=== PATIENT | female | born 1980 | race African-American/Black ===

== ENCOUNTER 2021-09-10 12:53 | Inpatient (IN) ==
[2021-09-10 14:44] LABS: Basophils # (auto) 0.07 K/uL (0-0.2); Basophils % (auto) 0.6 %; Eosinophils # (auto) 0.77 K/uL (0-0.50); Eosinophils % (auto) 6.4 %; Hematocrit (blood only) 25.5 % (34.1-44.9); Immature Granulocytes # (auto) 0.07 K/uL (0.00-0.02); Immature Granulocytes % (auto) 0.6 %; Lymphocytes # (auto) 2.59 K/uL (1.2-3.4); Lymphocytes % (auto) 21.7 %; Mean Corpuscular Hemoglobin 25.9 pg (25.0-34.0); Mean Corpuscular Hgb Conc 35.3 g/dL (32.0-36.0); Mean Corpuscular Volume 73.5 fL (80.0-100.0); Mean Platelet Volume 8.9 fL (9.4-12.3); Monocytes # (auto) 1.04 K/uL (0.24-0.82); Monocytes % (auto) 8.7 %; Neutrophils # (auto) 7.41 K/uL (1.4-6.5); Nucleated RBC # (auto) 0.09 K/uL (0-0); Nucleated RBC % (auto) 0.8 %; Platelet Count 722 K/uL (130-400); RDW Coefficient of Variation 17.4 % (11.5-14.5); RDW Standard Deviation 46.6 fL (36.4-46.3); Red Blood Count 3.47 M/uL (3.93-5.22); White Blood Count 11.95 K/ul (4.8-10.8)
[2021-09-10 15:04] LABS: INR 1.1 (0.9-1.1); Partial Thromboplastin Time 26.2 Seconds (21.0-31.0); Prothrombin Time 11.3 Seconds (9.0-12.0)
[2021-09-10 15:25] LABS: Albumin Globulin Ratio 0.8 (0.9-2); Albumin Level 3.9 gm/dl (3.4-5.0); Bilirubin,Total 0.7 mg/dl (0.2-1.0); Calcium 9.1 mg/dl (8.5-10.1); Creatinine Clr Calc Pharmacy 77.4 ml/min; Est GFR (Non-African American) 58.6 ml/min; Globulin 4.6 gm/dl (2.5-4.0); Magnesium 2.1 mg/dl (1.7-2.4); Potassium 4.2 mmol/L (3.5-5.1); Total Protein 8.5 gm/dl (6.0-8.3)
--- NOTE | 2021-09-10 15:49 | Emergency Department Note ---
Impression & Plan Bilateral pulmonary embolism, Anemia, Thrombocytopenia ED Provider Note NAME: AGUSTIN OROZCO AGE: 40 SEX: F : 1980 ARRIVES VIA: Walk-In INFORMANT: [Patient][, ] ED PROVIDER(S): [Santiago Monsivais MD] Chief Complaint: Shortness of breath, pleural effusion, rule out PE HPI: Patient [place] [facility] [place] due to concern for shortness of breath wanted to rule out PE/DVT. The patient states that she has had some shortness of breath as well as some left-sided calf discomfort. The patient states that shortness of breath is worse with exertion. The patient did have outpatient x-rays completed which showed constipation of the abdomen and the patient did have bilateral pleural effusions. Patient denies any recent prolonged car plane travel. The patient is currently been at the [facility] [place] [facility] for history of depression since the beginning of the month. Patient denies any alcohol or tobacco use. Patient was noted to have an increased heart rate with exertion into the 130s. Patient had been trialed with a breathing treatment which did occasionally improve her symptoms. The patient denies purulent productive cough but has occasionally clear expectoration. Patient denies any prior history of heart or lung disease. ROS: See HPI for pertinent positives and negatives. A total of 10 systems were reviewed and otherwise negative. Past medical history: See below Surgical history: See below Social history: See below Physical Exam: GENERAL: NAD, non-toxic. EYE EXAM: Normal conjunctiva. PERRL, no anisocoria and EOM's grossly intact w/o pain. NECK: Supple, no nuchal rigidity, no adenopathy, non-tender. No signs of meningismus. FROM of the neck with good chin to chest and neck extension. No stridor. LUNGS: Clear to auscultation. Normal chest wall mechanics. HEART: NSR, no MRG. ABDOMEN: Abdomen soft, non-tender, normo-active bowel sounds, no masses, no rebound or guarding. BACK: No CVA TTP. SKIN: No rashes and no bruising. UPPER EXTREMITIES: Upper extremities are grossly normal. LOWER EXTREMITIES: Grossly normal, no edema. Negative Homans' sign bilaterally. NEURO EXAM: A&O x3, cranial nerves II-XII grossly intact, normal speech, moves all 4 extremities. Differential diagnoses: Reactive airway disease, pneumonia, pneumothorax, COPD, CHF, infections, cardiac ischemia, pulmonary embolism, musculoskeletal, gastrointestinal, as well as other pathologies. Course: Patient was seen and evaluated the bedside. Full history physical exam was performed. EKG interpreted by me Sinus with first-degree AV block, rate of 81, prolonged ID, normal axis, no obvious ST elevations. Imaging Studies: See Below Cardiac monitoring: An order was placed for continuous cardiac monitoring. The monitor shows a rate of 82 with sinus rhythm. MDM: Patient presents due to concern for shortness of breath as well as rule out PE. Patient did have blood work completed along with a CT angiography of the chest. DVT ultrasound of the left lower extremity also ordered. Patient does have a white count of 11.9 with a hemoglobin of 9. Patient also has associated th rombocytosis of 722. Patient with mild hyponatremia at 135. The patient's troponin is not elevated. BNP is not elevated. Patient CT angiography does show concern for bilateral PEs. I did convey this to the patient as well as staff from [place] [facility] [place] Patient was ordered heparin bolus and drip. I did speak with the on-call hospitalist Dr. Bell and the patient was admitted to the medicine service. DVT ultrasound negative. Critical Care: I have personally spent 47 minutes of critical care time in direct management of this patient. This includes bedside care, interpretation of diagnostic studies, and testing, discussion with consultants, patient, and family members, and other require inpatient management activities. This 47 minutes is in excess of all separately billable procedures. Past Med/Surg History Medical History Depression Schizoaffective disorder Surgical History No pertinent past surgical history Social History Smoking Status: Current some day smoker Hx Alcohol Use: No Hx Substance Use: No Preferred Language: Divehi Feels Safe at Home: Yes Results & Data (ED) Vital Signs Vital Signs - 24 hr 09/10/21 12:59 09/10/21 15:30 09/10/21 18:00 Temperature 36.7 C Temperature Source Temporal Artery Scan Pulse Rate 94 H Pulse Rate [Right Finger] 74 81 Pulse Rhythm [Right Finger] Regular Regular Pulse Strength [Right Finger] Normal Normal Respiratory Rate 18 18 14 Respiratory Effort / Characteristics Non-Labored Non-Labored Respiratory Depth Normal Normal Respiratory Pattern Regular Regular Blood Pressure 107/75 Blood Pressure [Right Arm] 134/76 134/76 Blood Pressure Mean 85 Blood Pressure Mean [Right Arm] 95 95 Blood Pressure Position [Right Arm] Lying Lying Pulse Oximetry 94 94 94 Oxygen Delivery Method Room Air Room Air Room Air Sepsis Recent Fever Within 48 Hours No Sepsis New/Unexplained Change in Mental Status No Sepsis Action Taken by Nursing No Action Required Home Medications Current Medication List: was personally reviewed by me Laboratory Data Attestation: I reviewed the patient's lab results. Result diagrams: 09/10/21 14:26 09/10/21 14: Lab Results 09/10/21 09/10/21 09/10/21 Range/Units 14:26 14:26 14:26 WBC 11.95 H (4.8-10.8) K/ul RBC 3.47 L (3.93-5.22) M/uL Hgb 9.0 L (12.0-16.0) g/dl Hct 25.5 L (34.1-44.9) % MCV 73.5 L (80.0-100.0) fL MCH 25.9 (25.0-34.0) pg MCHC 35.3 (32.0-36.0) g/dL RDW Std Deviation 46.6 H (36.4-46.3) fL RDW Coeff of Eric 17.4 H (11.5-14.5) % Plt Count 722 H (130-400) K/uL MPV 8.9 L (9.4-12.3) fL Immature Gran % (Auto) 0.6 % Neut % (Auto) 62.0 % Lymph % (Auto) 21.7 % Love % (Auto) 8.7 % Eos % (Auto) 6.4 % Baso % (Auto) 0.6 % Reticulocyte % (Auto) (0.5-2.0) % Neut # (Auto) 7.41 H (1.4-6.5) K/uL Lymph # (Auto) 2.59 (1.2-3.4) K/uL Love # (Auto) 1.04 H (0.24-0.82) K/uL Eos # (Auto) 0.77 H (0-0.50) K/uL Baso # (Auto) 0.07 (0-0.2) K/uL Reticulocyte # (0.02-0.10) 10^6/uL Immature Gran # (Auto) 0.07 H (0.00-0.02) K/uL Absolute Nucleated RBC 0.09 H (0-0) K/uL Nucleated RBC % (auto) 0.8 % PT 11.3 (9.0-12.0) Seconds INR 1.1 (0.9-1.1) APTT 26.2 (21.0-31.0) Seconds PTT Ratio 1.0 Sodium 135 L (136-145) mmol/L Potassium 4.2 (3.5-5.1) mmol/L Chloride 100 (98-107) mmol/L Carbon Dioxide 28 (21-32) mmol/L Anion Gap 7 (3-11) BUN 8 (6-23) mg/dl Creatinine 1.15 (0.6-1.2) mg/dl Est Cr Clr Drug Dosing 77.4 ml/min Est GFR ( Amer) 68.0 ml/min Est GFR (Non-Af Amer) 58.6 ml/min BUN/Creatinine Ratio 7.0 L (10-20) Glucose 123 H (70-99(Fasting)) mg/dl Calcium 9.1 (8.5-10.1) mg/dl Magnesium 2.1 (1.7-2.4) mg/dl Total Bilirubin 0.7 (0.2-1.0) mg/dl AST 13 (13-39) U/L ALT 18 (7-52) U/L Alkaline Phosphatase 86 (34-104) U/L Troponin I High Sens (0-14) pg/ml B-Natriuretic Peptide (0-100) pg/ml Total Protein 8.5 H (6.0-8.3) gm/dl Albumin 3.9 (3.4-5.0) gm/dl Globulin 4.6 H (2.5-4.0) gm/dl Albumin/Globulin Ratio 0.8 L (0.9-2) Vitamin B12 (180-914) pg/ml Folate (>5.38) ng/ml SARS-CoV-2, RNA, NAAT (NEGATIVE) 09/10/21 09/10/21 09/10/21 Range/Units 14:36 14:36 16:33 WBC (4.8-10.8) K/ul RBC (3.93-5.22) M/uL Hgb (12.0-16.0) g/dl Hct (34.1-44.9) % MCV (80.0-100.0) fL MCH (25.0-34.0) pg MCHC (32.0-36.0) g/dL RDW Std Deviation (36.4-46.3) fL RDW Coeff of Eric (11.5-14.5) % Plt Count (130-400) K/uL MPV (9.4-12.3) fL Immature Gran % (Auto) % Neut % (Auto) % Lymph % (Auto) % Love % (Auto) % Eos % (Auto) % Baso % (Auto) % Reticulocyte % (Auto) 4.6 H (0.5-2.0) % Neut # (Auto) (1.4-6.5) K/uL Lymph # (Auto) (1.2-3.4) K/uL Love # (Auto) (0.24-0.82) K/uL Eos # (Auto) (0-0.50) K/uL Baso # (Auto) (0-0.2) K/uL Reticulocyte # 0.16 H (0.02-0.10) 10^6/uL Immature Gran # (Auto) (0.00-0.02) K/uL Absolute Nucleated RBC (0-0) K/uL Nucleated RBC % (auto) % PT (9.0-12.0) Seconds INR (0.9-1.1) APTT (21.0-31.0) Seconds PTT Ratio Sodium (136-145) mmol/L Potassium (3.5-5.1) mmol/L Chloride (98-107) mmol/L Carbon Dioxide (21-32) mmol/L Anion Gap (3-11) BUN (6-23) mg/dl Creatinine (0.6-1.2) mg/dl Est Cr Clr Drug Dosing ml/min Est GFR ( Amer) ml/min Est GFR (Non-Af Amer) ml/min BUN/Creatinine Ratio (10-20) Glucose (70-99(Fasting)) mg/dl Calcium (8.5-10.1) mg/dl Magnesium (1.7-2.4) mg/dl Total Bilirubin (0.2-1.0) mg/dl AST (13-39) U/L ALT (7-52) U/L Alkaline Phosphatase (34-104) U/L Troponin I High Sens 2.6 (0-14) pg/ml B-Natriuretic Peptide (0-100) pg/ml Total Protein (6.0-8.3) gm/dl Albumin (3.4-5.0) gm/dl Globulin (2.5-4.0) gm/dl Albumin/Globulin Ratio (0.9-2) Vitamin B12 130 L (180-914) pg/ml Folate 4.32 L (>5.38) ng/ml SARS-CoV-2, RNA, NAAT (NEGATIVE) 09/10/21 09/10/21 Range/Units 16:33 18:08 WBC (4.8-10.8) K/ul RBC (3.93-5.22) M/uL Hgb (12.0-16.0) g/dl Hct (34.1-44.9) % MCV (80.0-100.0) fL MCH (25.0-34.0) pg MCHC (32.0-36.0) g/dL RDW Std Deviation (36.4-46.3) fL RDW Coeff of Eric (11.5-14.5) % Plt Count (130-400) K/uL MPV (9.4-12.3) fL Immature Gran % (Auto) % Neut % (Auto) % Lymph % (Auto) % Love % (Auto) % Eos % (Auto) % Baso % (Auto) % Reticulocyte % (Auto) (0.5-2.0) % Neut # (Auto) (1.4-6.5) K/uL Lymph # (Auto) (1.2-3.4) K/uL Love # (Auto) (0.24-0.82) K/uL Eos # (Auto) (0-0.50) K/uL Baso # (Auto) (0-0.2) K/uL Reticulocyte # (0.02-0.10) 10^6/uL Immature Gran # (Auto) (0.00-0.02) K/uL Absolute Nucleated RBC (0-0) K/uL Nucleated RBC % (auto) % PT (9.0-12.0) Seconds INR (0.9-1.1) APTT (21.0-31.0) Seconds PTT Ratio Sodium (136-145) mmol/L Potassium (3.5-5.1) mmol/L Chloride (98-107) mmol/L Carbon Dioxide (21-32) mmol/L Anion Gap (3-11) BUN (6-23) mg/dl Creatinine (0.6-1.2) mg/dl Est Cr Clr Drug Dosing ml/min Est GFR ( Amer) ml/min Est GFR (Non-Af Amer) ml/min BUN/Creatinine Ratio (10-20) Glucose (70-99(Fasting)) mg/dl Calcium (8.5-10.1) mg/dl Magnesium (1.7-2.4) mg/dl Total Bilirubin (0.2-1.0) mg/dl AST (13-39) U/L ALT (7-52) U/L Alkaline Phosphatase (34-104) U/L Troponin I High Sens (0-14) pg/ml B-Natriuretic Peptide 13 (0-100) pg/ml Total Protein (6.0-8.3) gm/dl Albumin (3.4-5.0) gm/dl Globulin (2.5-4.0) gm/dl Albumin/Globulin Ratio (0.9-2) Vitamin B12 (180-914) pg/ml Folate (>5.38) ng/ml SARS-CoV-2, RNA, NAAT NEGATIVE (NEGATIVE) Administered Medications Heparin Sodium/Dextrose (Heparin Sodium/Dextrose) 25,000 units in 500 mls @ 28 mls/hr IV .[id number] [facility]; Protocol Stop: 10/10/21 17:29 Last Admin: 09/10/21 18:13 Dose: 1,400 units/hr, 28 mls/hr Documented By: AP Co-signed By: OL Discontinued Medications Albuterol (Albut/Ipratrop 3mg/0.5mg Neb 3 Ml Vial) 3 ml NEB NOW STA; Protocol Stop: 09/10/21 16:25 Last Admin: 09/10/21 16:53 Dose: 3 ml Documented By: ILEANA Heparin Sodium (Porcine) (Heparin Sod (Porcine) 1000 Unit/Ml) 1 units IV NOW ONE Stop: 09/10/21 17:27 Last Admin: 09/10/21 18:13 Dose: 6,000 units Documented By: DANIELA Co-signed By: ILEANA Ioversol (Optiray 320 125ml) 120 ml IV ONCE ONE Stop: 09/10/21 16:45 Last Admin: 09/10/21 16:45 Dose: 120 ml Documented By: [facility] Imaging Data Radiologist's Impression: Chest X-Ray 09/10/21 13:08 XR chest 1V portable CLINICAL HISTORY: SOB TECHNIQUE: Single frontal radiograph of the chest was obtained. Comparison: None available at the time of this dictation. FINDINGS: No lines and tubes are seen. The cardiomediastinal silhouette is normal. The lungs are clear. Small bilateral pleural effusions are seen. IMPRESSION: Small bilateral pleural effusions. ACT 112: Negative or not required by law. Electronically signed by: Bebeto Reed M.D. 09/10/2021 3:54 PM Chest CTA 09/10/21 16:11 CT ANGIOGRAM OF THE CHEST CLINICAL HISTORY: Dyspnea. Bilateral flank pain. COMPARISON STUDY: Chest x-ray dated 09/10/2021. TECHNIQUE: Following the IV administration of 120 cc of Optiray 320, CT angiogram of the chest was performed from the upper abdomen to the thoracic inlet utilizing the pulmonary embolus protocol. Images are reviewed in the axial, sagittal, and coronal planes. 3-D MIPS images are created and assessed. IV contrast was administered without complication. A dose lowering technique was utilized adhering to the principles of ALARA. CT DOSE: 359.98 mGy.cm FINDINGS: Thyroid: Imaged portions of the thyroid gland are normal in size and attenuation. Thoracic aorta: The thoracic aorta is normal in caliber and demonstrates standard 3-vessel arch anatomy. No dissection is seen. Pulmonary vasculature: The pulmonary trunk is normal in caliber. There are segmental and subsegmental pulmonary emboli within a branch of the right upper lobe pulmonary artery. This is best seen on axial image #187. Segmental and subsegmental left upper lobe pulmonary emboli are seen on image #153. The central pulmonary vessels are clear. Evaluation of the lower lobe vessels is significantly degraded by motion artifact. Heart: The heart is top normal in size and without pericardial effusion. Lungs and pleural spaces: There are small pleural effusions with dense bibasilar consolidation. The upper lobe lung parenchyma is clear. The trachea and central airways are patent. A 3 mm low suspicion pleural-based nodule is seen in the right middle lobe along the minor fissure on image #134. Mediastinum: There is a mildly enlarged prevascular node which measures up to 10 mm in short axis. Grazyna: There are mildly enlarged hilar nodes which measure up to 10 mm short axis. Axillae: There is no axillary lymphadenopathy. Upper abdomen: The spleen is diminutive. Partially visualized upper abdominal viscera is otherwise within normal limits. Skeletal structures: No lytic or blastic bony lesions are seen. IMPRESSION: 1. Segmental and subsegmental pulmonary emboli are seen within the upper lobe p ulmonary arteries bilaterally. 2. Small pleural effusions with dependent consolidation. This likely represents atelectasis. Correlate clinically for evidence of a superimposed infectious/inflammatory pneumonitis. 3. Atrophic spleen. 4. Mildly enlarged mediastinal and hilar nodes are likely reactive. 5. Additional findings as above. ACT 112: Negative or not required by law. Electronically signed by: Jai Wills M.D. 09/10/2021 4:55 PM Venous Doppler Study 09/10/21 16:25 US venous doppler [facility] CLINICAL HISTORY: calf pain TECHNIQUE: Left lower extremity real-time compression venous ultrasound with Color Doppler imaging. Utilizing real-time ultrasonic imaging multiple real time high-resolution ultrasonic images with compression and noncompression maneuvers of the deep venous system in addition to color doppler imaging were performed from the common femoral vein through the proximal calf veins. COMPARISON: None available at the time of this dictation. FINDINGS: Currently there is normal compressibility of the deep venous system from the common femoral vein through the proximal calf veins. No superficial venous thrombosis is identified. Impression: No evidence of deep venous thrombus. ACT 112: Negative or not required by law. Electronically signed by: Bebeto Reed M.D. 09/10/2021 5:50 PM Discharge Plan Visit Data Chief Complaint: Referred by Doctor Stated Complaint: PAIN IN SIDE, RESPIRATORY ISSUES, WEAKNESS ED Provider: Santiago Monsivais Discharge Problem: Bilateral pulmonary embolism, Anemia, Thrombocytopenia Patient Disposition: Admitted As Inpatient Forms Stand Alone Forms: [facility] Referrals Referrals: PCP,NO [Primary Care Provider] -
--- NOTE | 2021-09-10 15:56 | XRay Report ---
XR chest 1V portable CLINICAL HISTORY: SOB TECHNIQUE: Single frontal radiograph of the chest was obtained. Comparison: None available at the time of this dictation. FINDINGS: No lines and tubes are seen. The cardiomediastinal silhouette is normal. The lungs are clear. Small b ilateral pleural effusions are seen. IMPRESSION: Small bilateral pleural effusions. ACT 112: Negative or not required by law. Electronically signed by: Bebeto Reed M.D. 09/10/2021 3:54 PM
[2021-09-10] MEDS ORDERED: ALBUT/IPRATROP 3MG/0.5MG NEB 3 ML VIAL NEB STA (16:24)
[2021-09-10] MEDS ORDERED: OPTIRAY 320 125ml IV ONE (16:44)
--- NOTE | 2021-09-10 16:56 | CT Scan Report ---
CT ANGIOGRAM OF THE CHEST CLINICAL HISTORY: Dyspnea. Bilateral flank pain. COMPARISON STUDY: Chest x-ray dated 09/10/2021. TECHNIQUE: Following the IV administration of 120 cc of Optiray 320, CT angiogram of the chest was pe rformed from the upper abdomen to the thoracic inlet utilizing the pulmonary embolus protocol. Images are reviewed in the axial, sagittal, and coronal planes. 3-D MIPS images are created and assessed. I V contrast was administered without complication. A dose lowering technique was utilized adhering to the principles of ALARA. CT DOSE: 359.98 mGy.cm FINDINGS: Thyroid: Imaged portions of the thyroid gland are normal in size and attenuation. Thoracic aorta: The thoracic aorta is normal in caliber and demonstrates standard 3-vessel arch anato my. No dissection is seen. Pulmonary vasculature: The pulmonary trunk is normal in caliber. There are segmental and subsegmental pulmonary emboli within a branch of the right upper lobe pulmonary artery. This is best seen on axia l image #187. Segmental and subsegmental left upper lobe pulmonary emboli are seen on image #153. The central pulmonary vessels are clear. Evaluation of the lower lobe vessels is significantly degraded by motion artifact. Heart: The heart is top normal in size and without pericardial effusion. Lungs and pleural spaces: There are small pleural effusions with dense bibasilar consolidation. The u pper lobe lung parenchyma is clear. The trachea and central airways are patent. A 3 mm low suspicion pleural-based nodule is seen in the right middle lobe along the minor fissure on image #134. Mediastinum: There is a mildly enlarged prevascular node which measures up to 10 mm in short axis. Grazyna: There are mildly enlarged hilar nodes which measure up to 10 mm short axis. Axillae: There is no axillary lymphadenopathy. Upper abdomen: The spleen is diminutive. Partially visualized upper abdominal viscera is otherwise wi thin normal limits. Skeletal structures: No lytic or blastic bony lesions are seen. IMPRESSION: 1. Segmental and subsegmental pulmonary emboli are seen within the upper lobe pulmonary arteries bila terally. 2. Small pleural effusions with dependent consolidation. This likely represents atelectasis. Correlat e clinically for evidence of a superimposed infectious/inflammatory pneumonitis. 3. Atrophic spleen. 4. Mildly enlarged mediastinal and hilar nodes are likely reactive. 5. Additional findings as above. ACT 112: Negative or not required by law. Electronically signed by: Jai Wills M.D. 09/10/2021 4:55 PM
[2021-09-10] MEDS ORDERED: Heparin IV Adult Wt-Based Standard WITH Bolus Protocol IV STA (17:09)
[2021-09-10] MEDS ORDERED: HEPARIN SOD (PORCINE) 1000 UNIT/ML IV ONE (17:26)
--- NOTE | 2021-09-10 17:37 | History & Physical Report ---
Date of Service September 10, 2021 Assessment & Plan (1) Bilateral pulmonary embolism: Plan: Suspect somewhat her cause of shortness of breath and chest pain although she may also have underlying asthma Start IV heparin as unknown if anemia if acute or chronic but no overt bleeding noted by patient Likely can switch to oral anticoagulant tomorrow ?second episode - patient is unclear about this. May need outside PCP notes to see if she needs lifelong anticoagulation (2) Anemia: Plan: Possibly diagnosed with sickle cell anemia/trait - patient is unclear about this. Possible this alone could be causing her chest and leg pains. Will send sickle cell screen with AM labs Ferritin, iron sats, B12, folate and reticulocyte count FOB (3) Thrombophilia: Plan: ?related to sickle cell disease. Consider hematology follow up. (4) PTSD (post-traumatic stress disorder): Plan: Continue her usual psychiatric medications with haloperidol, risperidone, gabapentin, trazodone, benztropine, diphenhydramine and venlafaxine. (5) Panic disorder: (6) Schizoaffective disorder: Plan VTE Prophylaxis - heparin IV Diet - safe tray Disposition - observation status to med/tele Admission and Anticipated Discharge Date Admission Date: September 11, 2021 History of Present Illness Chief Complaint: Shortness of breath Primary Care Provider: NO PCP Billie Mast is a 40 year old female who presents from the [facility] due to chest discomfort, shortness of breath, tachycardia and hypoxia. She reports her symptoms have been ongoing for two weeks starting with left sided chest pain but now on both sides. Worse on inspiration. Associated shortness of breath. Urine has also been smelling and is darker but she also reports not drinking well - she was recently treated for a UTI with nitrof urantoin at the [facility]. She also now reports left leg pain for the last 2 days. Recent CXR yesterday was concerning for some consolidation and she was started on Levquin today. However given persistent worsening symptoms she was sent ot the ER for further evaluation. In the ER CT chest angiogram was concerning for bilateral pulmonary emboli therefore she was referred to medicine for admission and ongoing management of this. She is unsure about her medical history but thinks she may have had a blood clot sometime in 2007 for which she was treated with a blood thinner. When mentioning sickle cell disease/trait she thinks she has this although again is unsure. Allergies Allergy/AdvReac Type Severity Reaction Status Date / Time shellfish derived Allergy Unknown Verified 09/10/21 20:56 lactose AdvReac intolerance Verified 09/10/21 20:56 Home Medications Medication Instructions Recorded Confirmed Type albuterol sulfate 2.5 mg inhalation Q4H 09/10/21 09/10/21 History albuterol sulfate 90 mcg/actuation 2 inh inhalation Q6 PRN asthma 09/10/21 09/10/21 History aerosol inhaler benztropine 1 mg tablet 1 mg PO HS 09/10/21 09/10/21 History diphenhydramine HCl 25 mg capsule 25 mg PO BID 09/10/21 09/10/21 History (Benadryl) gabapentin 300 mg capsule 300 mg PO TID 09/10/21 09/10/21 History haloperidol 5 mg tablet 5 mg PO QAM 09/10/21 09/10/21 History ibuprofen 600 mg tablet 600 mg PO TID PRN Pain 09/10/21 09/10/21 History levofloxacin 250 mg tablet 750 mg PO DAILY 09/10/21 09/10/21 History lidocaine 4 % topical patch 3 patch topical PC PRN Pain 09/10/21 09/10/21 History (Salonpas (lidocaine)) loratadine 10 mg tablet (Claritin) 10 mg PO DAILY PRN allergies 09/10/21 09/10/21 History nitrofurantoin macrocrystal 100 mg 100 mg PO BID 09/10/21 09/10/21 History capsule risperidone 3 mg tablet 3 mg PO BID 09/10/21 09/10/21 History trazodone 100 mg tablet 200 mg PO HS 09/10/21 09/10/21 History venlafaxine 75 mg capsule,extended 75 mg PO BID 09/10/21 09/10/21 History release 24 hr (Effexor XR) Past Med/Surg History Medical History (Updated 09/10/21 @ 21:28 by Syed Bell MD) Anemia Depression Panic disorder PTSD (post-traumatic stress disorder) Schizoaffective disorder Surgical History No pertinent past surgical history Social History Smoking Status: Former smoker Hx Alcohol Use: Yes Hx Substance Use: No Preferred Language: Luxembourgish Communication Ability: Effective Cylinder Checker Required: No Beliefs That Will Affect Care: None Current Living Situation: Alone Current Living Situation Comment: lives in apartment alone Feels Safe at Home: No Is there a partner from a previous relationship who is making you feel unsafe now?: No Any Concerns about Your Family Situation: Yes Would You Like to Speak to Someone About Your Situation: Yes (referral to behavioral health) Safety Concerns: Afraid for Self and Afraid for Child/Children Review of Systems Review of Systems: All systems reviewed & are unremarkable except as noted in HPI & below Physical Exam Constitutional: WD/WN, vitals as above Eyes: + anicteric sclerae; normal pupil size ENMT: external ear and nose normal, oropharynx normal Neck: trachea midline, no thyromegaly Respiratory: normal respiratory effort, lungs clear to auscultation Cardiovascular: RRR, no murmur, no edema Gastrointestinal (Abdomen): normal bowel sounds, soft, nontender, no hepatosplenomegaly Musculoskeletal: no cyanosis or clubbing, extremities motor strength 5/5 Skin: no rashes, warm and dry Neurologic: moves all extremities and awake; not confused Psychiatric: A+Ox3, euthymic affect Results & Data Results & Data ([facility]) Vital Signs (Past 12 Hours) Vital Signs Temp Pulse Pulse Resp BP BP Pulse Ox 09/10/21 15:30 74 18 134/76 94 09/10/21 12:59 36.7 C 94 H 18 107/75 94 O2 Del Method 09/10/21 15:30 Room Air 09/10/21 12:59 Room Air Laboratory Results Abnormal lab results 09/10/21 09/10/21 Range/Units 14:26 14:26 WBC 11.95 H (4.8-10.8) K/ul RBC 3.47 L (3.93-5.22) M/uL Hgb 9.0 L (12.0-16.0) g/dl Hct 25.5 L (34.1-44.9) % MCV 73.5 L (80.0-100.0) fL RDW Std Deviation 46.6 H (36.4-46.3) fL RDW Coeff of Eric 17.4 H (11.5-14.5) % Plt Count 722 H (130-400) K/uL MPV 8.9 L (9.4-12.3) fL Neut # (Auto) 7.41 H (1.4-6.5) K/uL [place] # (Auto) 1.04 H (0.24-0.82) K/uL Eos # (Auto) 0.77 H (0-0.50) K/uL Immature Gran # (Auto) 0.07 H (0.00-0.02) K/uL Absolute Nucleated RBC 0.09 H (0-0) K/uL Sodium 135 L (136-145) mmol/L BUN/Creatinine Ratio 7.0 L (10-20) Glucose 123 H (70-99(Fasting)) mg/dl Total Protein 8.5 H (6.0-8.3) gm/dl Globulin 4.6 H (2.5-4.0) gm/dl Albumin/Globulin Ratio 0.8 L (0.9-2) Diagnostic Findings XR chest 1V portable CLINICAL HISTORY: SOB TECHNIQUE: Single frontal radiograph of the chest was obtained. Comparison: None available at the time of this dictation. FINDINGS: No lines and tubes are seen. The cardiomediastinal silhouette is normal. The lungs are clear. Small bilateral pleural effusions are seen. IMPRESSION: Small bilateral pleural effusions. CT ANGIOGRAM OF THE CHEST CLINICAL HISTORY: Dyspnea. Bilateral flank pain. COMPARISON STUDY: Chest x-ray dated 09/10/2021. TECHNIQUE: Following the IV administration of 120 cc of Optiray 320, CT angiogram of the chest was performed from the upper abdomen to the thoracic inlet utilizing the pulmonary embolus protocol. Images are reviewed in the axial, sagittal, and coronal planes. 3-D MIPS images are created and assessed. IV contrast was administered without complication. A dose lowering technique was utilized adhering to the principles of ALARA. CT DOSE: 359.98 mGy.cm FINDINGS: Thyroid: Imaged portions of the thyroid gland are normal in size and attenuation. Thoracic aorta: The thoracic aorta is normal in caliber and demonstrates standard 3-vessel arch anatomy. No dissection is seen. Pulmonary vasculature: The pulmonary trunk is normal in caliber. There are segmental and subsegmental pulmonary emboli within a branch of the right upper lobe pulmonary artery. This is best seen on axial image #187. Segmental and subsegmental left upper lobe pulmonary emboli are seen on image #153. The central pulmonary vessels are clear. Evaluation of the lower lobe vessels is significantly degraded by motion artifact. Heart: The heart is top normal in size and without pericardial effusion. Lungs and pleural spaces: There are small pleural effusions with dense bibasilar consolidation. The upper lobe lung parenchyma is clear. The trachea and central airways are patent. A 3 mm low suspicion pleural-based nodule is seen in the right middle lobe along the minor fissure on image #134. Mediastinum: There is a mildly enlarged prevascular node which measures up to 10 mm in short axis. [place]: There are mildly enlarged hilar nodes which measure up to 10 mm short axis. Axillae: There is no axillary lymphadenopathy. Upper abdomen: The spleen is diminutive. Partially visualized upper abdominal viscera is otherwise within normal limits. Skeletal structures: No lytic or blastic bony lesions are seen. IMPRESSION: 1. Segmental and subsegmental pulmonary emboli are seen within the upper lobe pulmonary arteries bilaterally. 2. Small pleural effusions with dependent consolidation. This likely represents atelectasis. Correlate clinically for evidence of a superimposed infectious/inflammatory pneumonitis. 3. Atrophic spleen. 4. Mildly enlarged mediastinal and hilar nodes are likely reactive. 5. Additional findings as above. US venous doppler LE LT CLINICAL HISTORY: calf pain TECHNIQUE: Left lower extremity real-time compression venous ultrasound with Color Doppler imaging. Utilizing real-time ultrasonic imaging multiple real time high-resolution ultrasonic images with compression and noncompression maneuvers of the deep venous system in addition to color doppler imaging were performed from the common femoral vein through the proximal calf veins. COMPARISON: None available at the time of this dictation. FINDINGS: Currently there is normal compressibility of the deep venous system from the common femoral vein through the proximal calf veins. No superficial venous thrombosis is identified. Impression: No evidence of deep venous thrombus. Medications Administered ER Medications Given: Duoneb 3ml NEB Heparin IV standard bolus and drip ECG Rate (beats per minute): 81 Rhythm: normal sinus Findings: + other (non-specific T wave abnormality) Comparison ECG Date: no prior available Code Status & VTE Plan Code Status Full VTE Prophylaxis Plan VTE Prophylaxis will be ordered: Yes PG Care Time/CCT Total # of Minutes Spent Total Time Spent with Patient: Total time spent is greater than 50% in coordination of care (as documented) at patient's floor/unit and/or counseling patient: Coding Level of Care Code INT OBSERVATION CARE 70M LVL 3 Diagnoses Bilateral pulmonary embolism I26.99 Anemia D64.9 Thrombophilia D68.59 PTSD (post-traumatic stress disorder) F43.10 Panic disorder F41.0 Schizoaffective disorder F25.9
--- NOTE | 2021-09-10 17:51 | Ultrasound Report ---
US venous doppler LE LT CLINICAL HISTORY: calf pain TECHNIQUE: Left lower extremity real-time compression venous ultrasound with Color Doppler imaging. U tilizing real-time ultrasonic imaging multiple real time high-resolution ultrasonic images with compr ession and noncompression maneuvers of the deep venous system in addition to color doppler imaging we re performed from the common femoral vein through the proximal calf veins. COMPARISON: None available at the time of this dictation. FINDINGS: Currently there is normal compressibility of the deep venous system from the common femoral vein thro ugh the proximal calf veins. No superficial venous thrombosis is identified. Impression: No evidence of deep venous thrombus. ACT 112: Negative or not required by law. Electronically signed by: Bebeto Reed M.D. 09/10/2021 5:50 PM
[2021-09-10] MEDS: HEPARIN SODIUM/DEXTROSE 25,000 UNITS/500 ML BAG IV SCH (18:13)
[2021-09-10 18:50] LABS: Reticulocyte % 4.6 % (0.5-2.0); Reticulocytes # 0.16 10^6/uL (0.02-0.10)
[2021-09-10 19:21] LABS: Folate (Folic Acid) 4.32 ng/ml (>5.38)
[2021-09-10 19:38] LABS: Ferritin 850.1 ng/ml (8-388)
[2021-09-10] MEDS ORDERED: LORATADINE 10 MG TAB PO PRN (21:13)
[2021-09-10] MEDS: risperiDONE 3 MG TABLET PO SCH (22:17)
[2021-09-10] MEDS: traZODone HCL 100 MG TAB PO SCH (22:17)
[2021-09-10] MEDS: diphenhydrAMINE Capsule 25 MG CAP PO SCH (22:17)
[2021-09-10] MEDS: GABAPENTIN 300 MG CAP PO SCH (22:17)
[2021-09-10] MEDS: BENZTROPINE MESYLATE 1 MG TAB PO SCH (22:18)
[2021-09-11 01:19] LABS: Partial Thromboplastin Ratio 2.5
[2021-09-11 01:30] LABS: Partial Thromboplastin Time 68.9 Seconds (21.0-31.0)
--- NOTE | 2021-09-11 04:33 | Communication Note ---
Date of Service: September 11, 2021 See nursing and psych liaison notes regarding childline report filed by psych liason. Patient's nurse had reached out to me about patient's stated concern. I discussed with attending who then reached out to gallery manager who called Russell and who later reached out to cna caregiver and psych liaison.
[2021-09-11 07:56] LABS: Basophils # (auto) 0.07 K/uL (0-0.2); Basophils % (auto) 0.5 %; Eosinophils # (auto) 1.26 K/uL (0-0.50); Eosinophils % (auto) 9.4 %; Hematocrit (blood only) 23.9 % (34.1-44.9); Hemoglobin 8.5 g/dl (12.0-16.0); Immature Granulocytes # (auto) 0.13 K/uL (0.00-0.02); Lymphocytes # (auto) 3.69 K/uL (1.2-3.4); Lymphocytes % (auto) 27.6 %; Mean Corpuscular Hemoglobin 26.2 pg (25.0-34.0); Mean Corpuscular Hgb Conc 35.6 g/dL (32.0-36.0); Mean Corpuscular Volume 73.8 fL (80.0-100.0); Mean Platelet Volume 9.3 fL (9.4-12.3); Monocytes % (auto) 9.7 %; Neutrophils # (auto) 6.92 K/uL (1.4-6.5); Neutrophils % (auto) 51.8 %; Nucleated RBC # (auto) 0.09 K/uL (0-0); Nucleated RBC % (auto) 0.7 %; Platelet Count 750 K/uL (130-400); RDW Coefficient of Variation 17.4 % (11.5-14.5); RDW Standard Deviation 46.9 fL (36.4-46.3); Red Blood Count 3.24 M/uL (3.93-5.22); White Blood Count 13.37 K/ul (4.8-10.8)
[2021-09-11 08:02] LABS: Partial Thromboplastin Ratio 1.8
[2021-09-11 08:08] LABS: Partial Thromboplastin Time 49.8 Seconds (21.0-31.0)
[2021-09-11] MEDS: risperiDONE 3 MG TABLET PO SCH ×2 (08:21→20:13)
[2021-09-11] MEDS: diphenhydrAMINE Capsule 25 MG CAP PO SCH ×2 (08:21→20:13)
[2021-09-11 08:22] LABS: BUN Creatinine Ratio 8.8 (10-20); Creatinine Clr Calc Pharmacy 87.4 ml/min; Est GFR (African American) 78.6 ml/min; Est GFR (Non-African American) 67.8 ml/min; Potassium 4.5 mmol/L (3.5-5.1)
[2021-09-11] MEDS: haloperidoL 5 MG TAB PO SCH (08:22)
[2021-09-11] MEDS: GABAPENTIN 300 MG CAP PO SCH ×3 (08:22→20:13)
[2021-09-11] MEDS: VENLAFAXINE HCL XR 75 MG CAPXR PO SCH ×2 (08:22→13:52)
[2021-09-11] MEDS: ACETAMINOPHEN 325 MG TAB PO PRN ×2 (08:26→19:44)
[2021-09-11] MEDS ORDERED: SODIUM CHLORIDE 0.9% 500 ML IV SCH (09:00)
--- NOTE | 2021-09-11 09:16 | Electrocardiogram Report ---
Test Reason : Blood Pressure : / mmHG Vent. Rate : 081 BPM Atrial Rate : 081 BPM P-R Int : 214 ms QRS Dur : 088 ms QT Int : 374 ms P-R-T Axes : 034 023 023 degrees QTc Int : 434 ms Sinus rhythm with 1st degree A-V block Nonspecific T wave abnormality Abnormal ECG No previous ECGs available Confirmed by Domenico Romero ([id number]) on 09/11/2021 9:16:28 AM Referred By: Confirmed By:Domenico Romero
[2021-09-11] MEDS: SODIUM CHLORIDE 0.9% 1,000 ML IV SCH ×2 (10:05→22:33)
[2021-09-11 10:54] LABS: Iron 42 mcg/dl (35-150); Total Iron Binding Cap Calc 248 mcg/dl (250-450); Transferrin (FE) Percent Satur 17 % (15-50); Unsaturated Iron Binding Cap 206 mcg/dl (155-355)
[2021-09-11] MEDS: AZITHROMYCIN 250 MG TAB PO SCH (10:59)
[2021-09-11] MEDS: AMPICILLIN/SULBACTAM SOD 3,000 MG in 0.9 % SODIUM CHLORIDE 100 ML IV SCH ×3 (10:59→21:28)
[2021-09-11 11:25] LABS: Pregnancy Test, Urine Negative (Negative)
[2021-09-11 11:28] LABS: Appearance Urine Clear (Clear); Bacteria Urine Automated 1+ (Negative); Bilirubin Urine Negative (Negative); Blood Urine Negative (Negative); Color Urine Yellow; Epithelial Cell Urine Auto 20-30 /lpf (0-5); Glucose Urine UA Negative (Negative); Ketones Urine Negative (Negative); Leukocyte Esterase Urine Trace (Negative); Nitrite Urine Negative (Negative); Protein Urine Negative (Negative); RBC Urine Automated 0-4 /hpf (0-4); Specific Gravity Urine 1.022 (1.000-1.030); Urobilinogen Urine Negative (Negative); pH Urine 6.5 (4.5-7.5)
--- NOTE | 2021-09-11 15:58 | Hospitalist Progress Note ---
Date of Service September 11, 2021 Assessment & Plan (1) Bilateral pulmonary embolism: Plan: Reportedly past history in 2007 when she was on Coumadin (not confirmed) but did not tolerate and later describes what appears to be Lovenox; Given recurrence should be on lifelong anticoagulation; however, will need to consider antiphospholipid syndrome that Coumadin would be the drug of choice APL studies IV heparin for now; Echo; volume (2) Anemia: Plan: Impression microcytic anemia; appears picture of sickle thal; will obtain studies pending sickle screen; also, noted folic acid level and B12 levelrepl zoran (high-dose p.o. B12) (3) Thrombophilia: Plan: Uncertain etiology; does not appear iron deficient; given leukocytosis does raise the question of myelodysplasiahematology evaluation early Monday (4) PTSD (post-traumatic stress disorder): Plan: Continue her usual psychiatric medications with haloperidol, risperidone, gabapentin, trazodone, benztropine, diphenhydramine and venlafaxine. (5) Schizoaffective disorder: Plan: Continue meds as ordered; denies SI (6) Leucocytosis: Plan: Given question of consolidation benefit of doubt and treat as possible PNA pending more data Plan VTE Prophylaxis - heparin IV Diet - safe tray Admission and Anticipated Discharge Date Admission Date: September 10, 2021 Subjective Follow-up of presentation with shortness of breath-does feel dizzy Physical Exam Physical Exam: Constitutional and general: No acute distress, looks biologic age Head and face: No puffiness, atraumatic Eyes: No scleral icterus, extraocular movements normal Neck: Supple, no JVD Musculoskeletal: No acute joint swelling, no bony abnormalities Skin/dermatologic/integument: No rash, no purpura Hematologic and lymphatic: pallor +, no petechia Gastrointestinal/abdomen: Nondistended, soft, nonacute Neurologic: Cranial nerves intact, nonfocal Psychiatry: Awake, alert, pleasant, communicative Cardiovascular: Heart rhythm regular, no rub, no murmur, no gallop Respiratory: Chest movements equal, no use of accessory muscles, no adventitious sounds Extremities: No edema, no cyanosis Results & Data Results & Data ([facility]) Vital Signs (Past 12 Hours) Vital Signs Temp Pulse Pulse Resp BP Pulse Ox O2 Del Method 09/11/21 15:36 36.8 C 84 18 105/70 92 Room Air 09/11/21 14:44 79 09/11/21 10:50 36.3 C L 97 H 18 113/75 91 Room Air 09/11/21 08:39 79 09/11/21 07:56 36.9 C 64 18 91/58 L 94 Room Air 09/11/21 04:00 36.7 C 84 18 109/64 94 Room Air Laboratory Results Laboratory Results - last 24 hr 09/10/21 09/10/21 09/10/21 14:36 14:36 14:36 WBC RBC Hgb Hct MCV MCH MCHC RDW Std Deviation RDW Coeff of Eric Plt Count MPV Immature Gran % (Auto) Neut % (Auto) Lymph % (Auto) [place] % (Auto) Eos % (Auto) Baso % (Auto) Reticulocyte % (Auto) 4.6 H Neut # (Auto) Lymph # (Auto) [place] # (Auto) Eos # (Auto) Baso # (Auto) Reticulocyte # 0.16 H Immature Gran # (Auto) Absolute Nucleated RBC Nucleated RBC % (auto) Sickle Cell Screen APTT PTT Ratio Sodium Potassium Chloride Carbon Dioxide Anion Gap BUN Creatinine Est Cr Clr Drug Dosing Est GFR ( Amer) Est GFR (Non-Af Amer) BUN/Creatinine Ratio Glucose Calcium Iron 50 TIBC 267 Unsaturated IBC 217 Transferrin % Sat 19 Ferritin 850.1 H Troponin I High Sens B-Natriuretic Peptide Vitamin B12 130 L Folate 4.32 L Procalcitonin Urine Color Urine Appearance Urine pH Ur Specific [place] Urine Protein Urine Glucose (UA) Urine Ketones Urine Blood Urine Nitrite Urine Bilirubin Urine Urobilinogen Ur Leukocyte Esterase Urine WBC (Auto) Urine RBC (Auto) U Hyaline Cast (Auto) U Epithel Cells (Auto) Urine Bacteria (Auto) Urine Test Nasal Screen MRSA (PCR) Urine Legionella Ag SARS-CoV-2, RNA, NAAT 09/10/21 09/10/21 09/10/21 16:33 16:33 18:08 WBC RBC Hgb Hct MCV MCH MCHC RDW Std Deviation RDW Coeff of Eric Plt Count MPV Immature Gran % (Auto) Neut % (Auto) Lymph % (Auto) [place] % (Auto) Eos % (Auto) Baso % (Auto) Reticulocyte % (Auto) Neut # (Auto) Lymph # (Auto) [place] # (Auto) Eos # (Auto) Baso # (Auto) Reticulocyte # Immature Gran # (Auto) Absolute Nucleated RBC Nucleated RBC % (auto) Sickle Cell Screen APTT PTT Ratio Sodium Potassium Chloride Carbon Dioxide Anion Gap BUN Creatinine Est Cr Clr Drug Dosing Est GFR ( Amer) Est GFR (Non-Af Amer) BUN/Creatinine Ratio Glucose Calcium Iron TIBC Unsaturated IBC Transferrin % Sat Ferritin Troponin I High Sens 2.6 B-Natriuretic Peptide 13 Vitamin B12 Folate Procalcitonin Urine Color Urine Appearance Urine pH Ur Specific [place] Urine Protein Urine Glucose (UA) Urine Ketones Urine Blood Urine Nitrite Urine Bilirubin Urine Urobilinogen Ur Leukocyte Esterase Urine WBC (Auto) Urine RBC (Auto) U Hyaline Cast (Auto) U Epithel Cells (Auto) Urine Bacteria (Auto) Urine Test Nasal Screen MRSA (PCR) Urine Legionella Ag SARS-CoV-2, RNA, NAAT NEGATIVE 09/10/21 09/11/21 09/11/21 23:15 00:31 06:28 WBC RBC Hgb Hct MCV MCH MCHC RDW Std Deviation RDW Coeff of Eric Plt Count MPV Immature Gran % (Auto) Neut % (Auto) Lymph % (Auto) [place] % (Auto) Eos % (Auto) Baso % (Auto) Reticulocyte % (Auto) Neut # (Auto) Lymph # (Auto) [place] # (Auto) Eos # (Auto) Baso # (Auto) Reticulocyte # Immature Gran # (Auto) Absolute Nucleated RBC Nucleated RBC % (auto) Sickle Cell Screen Pending APTT 68.9 H* PTT Ratio 2.5 Sodium Potassium Chloride Carbon Dioxide Anion Gap BUN Creatinine Est Cr Clr Drug Dosing Est GFR ( Amer) Est GFR (Non-Af Amer) BUN/Creatinine Ratio Glucose Calcium Iron TIBC Unsaturated IBC Transferrin % Sat Ferritin Troponin I High Sens B-Natriuretic Peptide Vitamin B12 Folate Procalcitonin Urine Color Urine Appearance Urine pH Ur Specific [place] Urine Protein Urine Glucose (UA) Urine Ketones Urine Blood Urine Nitrite Urine Bilirubin Urine Urobilinogen Ur Leukocyte Esterase Urine WBC (Auto) Urine RBC (Auto) U Hyaline Cast (Auto) U Epithel Cells (Auto) Urine Bacteria (Auto) Urine Test Nasal Screen MRSA (PCR) Negative Urine Legionella Ag SARS-CoV-2, RNA, NAAT 09/11/21 09/11/21 09/11/21 06:28 06:31 06:31 WBC 13.37 H RBC 3.24 L Hgb 8.5 L Hct 23.9 L MCV 73.8 L MCH 26.2 MCHC 35.6 RDW Std Deviation 46.9 H RDW Coeff of Eric 17.4 H Plt Count 750 H MPV 9.3 L Immature Gran % (Auto) 1.0 Neut % (Auto) 51.8 Lymph % (Auto) 27.6 [place] % (Auto) 9.7 Eos % (Auto) 9.4 Baso % (Auto) 0.5 Reticulocyte % (Auto) Neut # (Auto) 6.92 H Lymph # (Auto) 3.69 H [place] # (Auto) 1.30 H Eos # (Auto) 1.26 H Baso # (Auto) 0.07 Reticulocyte # Immature Gran # (Auto) 0.13 H Absolute Nucleated RBC 0.09 H Nucleated RBC % (auto) 0.7 Sickle Cell Screen APTT 49.8 H* PTT Ratio 1.8 Sodium 134 L Potassium 4.5 Chloride 100 Carbon Dioxide 28 Anion Gap 6 BUN 9 Creatinine 1.02 Est Cr Clr Drug Dosing 87.4 Est GFR ( Amer) 78.6 Est GFR (Non-Af Amer) 67.8 BUN/Creatinine Ratio 8.8 L Glucose 118 H Calcium 9.0 Iron TIBC Unsaturated IBC Transferrin % Sat Ferritin Troponin I High Sens B-Natriuretic Peptide Vitamin B12 Folate Procalcitonin Urine Color Urine Appearance Urine pH Ur Specific [place] Urine Protein Urine Glucose (UA) Urine Ketones Urine Blood Urine Nitrite Urine Bilirubin Urine Urobilinogen Ur Leukocyte Esterase Urine WBC (Auto) Urine RBC (Auto) U Hyaline Cast (Auto) U Epithel Cells (Auto) Urine Bacteria (Auto) Urine Test Nasal Screen MRSA (PCR) Urine Legionella Ag SARS-CoV-2, RNA, NAAT 09/11/21 09/11/21 09/11/21 09:24 09:24 11:00 WBC RBC Hgb Hct MCV MCH MCHC RDW Std Deviation RDW Coeff of Eric Plt Count MPV Immature Gran % (Auto) Neut % (Auto) Lymph % (Auto) [place] % (Auto) Eos % (Auto) Baso % (Auto) Reticulocyte % (Auto) Neut # (Auto) Lymph # (Auto) [place] # (Auto) Eos # (Auto) Baso # (Auto) Reticulocyte # Immature Gran # (Auto) Absolute Nucleated RBC Nucleated RBC % (auto) Sickle Cell Screen APTT PTT Ratio Sodium Potassium Chloride Carbon Dioxide Anion Gap BUN Creatinine Est Cr Clr Drug Dosing Est GFR ( Amer) Est GFR (Non-Af Amer) BUN/Creatinine Ratio Glucose Calcium Iron 42 TIBC 248 L Unsaturated IBC 206 Transferrin % Sat 17 Ferritin Troponin I High Sens B-Natriuretic Peptide Vitamin B12 Folate Procalcitonin < 0.05 Urine Color Urine Appearance Urine pH Ur Specific [place] Urine Protein Urine Glucose (UA) Urine Ketones Urine Blood Urine Nitrite Urine Bilirubin Urine Urobilinogen Ur Leukocyte Esterase Urine WBC (Auto) Urine RBC (Auto) U Hyaline Cast (Auto) U Epithel Cells (Auto) Urine Bacteria (Auto) Urine Test Nasal Screen MRSA (PCR) Urine Legionella Ag Pending SARS-CoV-2, RNA, NAAT 09/11/21 09/11/21 11:00 11:00 WBC RBC Hgb Hct MCV MCH MCHC RDW Std Deviation RDW Coeff of Eric Plt Count MPV Immature Gran % (Auto) Neut % (Auto) Lymph % (Auto) [place] % (Auto) Eos % (Auto) Baso % (Auto) Reticulocyte % (Auto) Neut # (Auto) Lymph # (Auto) [place] # (Auto) Eos # (Auto) Baso # (Auto) Reticulocyte # Immature Gran # (Auto) Absolute Nucleated RBC Nucleated RBC % (auto) Sickle Cell Screen APTT PTT Ratio Sodium Potassium Chloride Carbon Dioxide Anion Gap BUN Creatinine Est Cr Clr Drug Dosing Est GFR ( Amer) Est GFR (Non-Af Amer) BUN/Creatinine Ratio Glucose Calcium Iron TIBC Unsaturated IBC Transferrin % Sat Ferritin Troponin I High Sens B-Natriuretic Peptide Vitamin B12 Folate Procalcitonin Urine Color Yellow Urine Appearance Clear Urine pH 6.5 Ur Specific [place] 1.022 Urine Protein Negative Urine Glucose (UA) Negative Urine Ketones Negative Urine Blood Negative Urine Nitrite Negative Urine Bilirubin Negative Urine Urobilinogen Negative Ur Leukocyte Esterase Trace H Urine WBC (Auto) 1-5 Urine RBC (Auto) 0-4 U Hyaline Cast (Auto) 1-5 U Epithel Cells (Auto) 20-30 H Urine Bacteria (Auto) 1+ H Urine Test Negative Nasal Screen MRSA (PCR) Urine Legionella Ag SARS-CoV-2, RNA, NAAT PG Care Time/CCT Total # of Minutes Spent Total Time Spent with Patient: Total time spent is greater than 50% in coordination of care (as documented) at patient's floor/unit and/or counseling patient: Coding Level of Care Code 85353 Subseq Hosp Care Lvl 3 Diagnoses Bilateral pulmonary embolism I26.99 Anemia D64.9 Thrombophilia D68.59 PTSD (post-traumatic stress disorder) F43.10 Schizoaffective disorder F25.9 Leucocytosis D72.829
[2021-09-11] MEDS: HEPARIN SODIUM/DEXTROSE 25,000 UNITS/500 ML BAG IV SCH (15:59)
[2021-09-11] MEDS: FOLIC ACID 1 MG TAB PO SCH (17:11)
[2021-09-11] MEDS: CYANOCOBALAMIN (B-12) 500 MCG TABLET PO SCH (17:11)
[2021-09-11] MEDS ORDERED: bisacodyL 10 MG SUPP PR PRN (18:38)
[2021-09-11] MEDS: traZODone HCL 100 MG TAB PO SCH (20:12)
[2021-09-11] MEDS: DOCUSATE SODIUM 100 MG CAP PO SCH (20:13)
[2021-09-11] MEDS: BENZTROPINE MESYLATE 1 MG TAB PO SCH (20:14)
[2021-09-12] MEDS: AMPICILLIN/SULBACTAM SOD 3,000 MG in 0.9 % SODIUM CHLORIDE 100 ML IV SCH ×3 (04:18→17:02)
[2021-09-12 06:01] LABS: Hematocrit (blood only) 23.8 % (34.1-44.9); Hemoglobin 8.5 g/dl (12.0-16.0); Mean Corpuscular Hemoglobin 26.2 pg (25.0-34.0); Mean Corpuscular Hgb Conc 35.7 g/dL (32.0-36.0); Mean Corpuscular Volume 73.5 fL (80.0-100.0); Nucleated RBC # (auto) 0.09 K/uL (0-0); Nucleated RBC % (auto) 0.7 %; Platelet Count 742 K/uL (130-400); RDW Coefficient of Variation 17.5 % (11.5-14.5); RDW Standard Deviation 47.1 fL (36.4-46.3); Red Blood Count 3.24 M/uL (3.93-5.22); White Blood Count 12.23 K/ul (4.8-10.8)
[2021-09-12] MEDS: ACETAMINOPHEN 325 MG TAB PO PRN ×2 (06:02→22:32)
[2021-09-12 06:28] LABS: Partial Thromboplastin Ratio 1.8
[2021-09-12 06:31] LABS: Basophils # (auto) 0.08 K/uL (0-0.2); Basophils % (auto) 0.7 %; Eosinophils % (auto) 9.8 %; Immature Granulocytes # (auto) 0.09 K/uL (0.00-0.02); Immature Granulocytes % (auto) 0.7 %; Lymphocytes # (auto) 4.62 K/uL (1.2-3.4); Lymphocytes % (auto) 37.8 %; Monocytes # (auto) 0.95 K/uL (0.24-0.82); Monocytes % (auto) 7.8 %; Neutrophils # (auto) 5.29 K/uL (1.4-6.5); Neutrophils % (auto) 43.2 %; Polychromasia 1+; Target Cells 3+
[2021-09-12 06:32] LABS: Partial Thromboplastin Time 50.7 Seconds (21.0-31.0)
[2021-09-12] MEDS: GABAPENTIN 300 MG CAP PO SCH ×3 (08:08→20:47)
[2021-09-12] MEDS: diphenhydrAMINE Capsule 25 MG CAP PO SCH ×2 (08:08→20:47)
[2021-09-12] MEDS: risperiDONE 3 MG TABLET PO SCH ×2 (08:08→20:48)
[2021-09-12] MEDS: DOCUSATE SODIUM 100 MG CAP PO SCH ×2 (08:08→20:49)
[2021-09-12] MEDS: AZITHROMYCIN 250 MG TAB PO SCH (08:09)
[2021-09-12] MEDS: VENLAFAXINE HCL XR 75 MG CAPXR PO SCH ×2 (08:09→13:25)
[2021-09-12] MEDS: haloperidoL 5 MG TAB PO SCH (08:09)
[2021-09-12] MEDS: FOLIC ACID 1 MG TAB PO SCH (08:09)
[2021-09-12] MEDS: CYANOCOBALAMIN (B-12) 500 MCG TABLET PO SCH (08:09)
[2021-09-12] MEDS ORDERED: FOLIC ACID 400 MCG TAB PO ONE (09:15)
[2021-09-12] MEDS: SODIUM CHLORIDE 0.9% 1,000 ML IV SCH (11:12)
[2021-09-12] MEDS: HEPARIN SODIUM/DEXTROSE 25,000 UNITS/500 ML BAG IV SCH (14:42)
--- NOTE | 2021-09-12 17:42 | Hospitalist Progress Note ---
Date of Service September 12, 2021 Assessment & Plan (1) Bilateral pulmonary embolism: Plan: Reportedly past history in 2007 when she was on Coumadin (not confirmed) but apparently did not tolerate same and later describes what appears to be Lovenox; Given recurrence should be on lifelong anticoagulation; however, will need to consider antiphospholipid syndrome if so Coumadin would be the drug of choice APL antibody studies sent but pending same can be on DOAC However, cost check for DOAC has not been feasible; she does not know her pharmacy definitively; psychiatry facility did not have additional information; will need to check pharmacy near her home on Monday (closed today) Continue IV heparin for now (she complained of some vague bleeding on the right side of abdomennone seen, I did not switch to Lovenox but can consider) (2) Anemia: Plan: Impression microcytic anemia; appears picture of sickle thal; sickle 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 (7) Asplenia: Plan: Functional asplenia; should get appropriate vaccinations; PCV 20-not available; PCV 15 also not available; if PCV 13 or 15 then PPSV23 8 weeks later (none of the PCVs were available) Hib -given MenACWY 2 doses 8 weeks apart-not available; Bexsero 2 doses 1 month apartnot available Not available vaccinesas outpatient Low threshold for antibiotics; however, based on procalcitonin and overall picture I currently stopped antibiotics Plan Fluids stopped VTE Prophylaxis - heparin IV Diet - safe tray Admission and Anticipated Discharge Date Admission Date: September 11, 2021 Subjective Follow-up of presentation with shortness of breathstates doing better but then reported some sort of bleeding right side of abdomen, none seen Physical Exam Physical Exam: Constitutional and general: No acute distress, looks biologic age Head and face: No puffiness, atraumatic Eyes: No scleral icterus, extraocular movements normal Neck: Supple, no JVD Musculoskeletal: No acute joint swelling, no bony abnormalities Skin/dermatologic/integument: No rash, no purpura Hematologic and lymphatic: pallor ++, no petechia Gastrointestinal/abdomen: Nondistended, soft, nonacute Neurologic: Cranial nerves intact, nonfocal Psychiatry: Awake, alert, pleasant, communicative Cardiovascular: Heart rhythm regular, no rub, no murmur, no gallop Respiratory: Chest movements equal, no use of accessory muscles, no adventitious sounds Extremities: No edema, no cyanosis Results & Data Results & Data ([facility]) Vital Signs (Past 12 Hours) Vital Signs Temp Pulse Pulse Resp BP Pulse Ox O2 Del Method 09/12/21 16:56 36.4 C L 75 18 148/78 H 94 Room Air 09/12/21 15:04 77 09/12/21 11:33 36.8 C 71 18 116/75 95 Room Air 09/12/21 08:30 36.6 C 69 18 113/77 94 Room Air 09/12/21 08:00 73 Laboratory Results Laboratory Results - last 24 hr 09/11/21 09/12/21 09/12/21 06:28 05:35 05:35 WBC 12.23 H RBC 3.24 L Hgb 8.5 L Hct 23.8 L MCV 73.5 L MCH 26.2 MCHC 35.7 RDW Std Deviation 47.1 H RDW Coeff of Eric 17.5 H Plt Count 742 H MPV 9.0 L Immature Gran % (Auto) 0.7 Neut % (Auto) 43.2 Lymph % (Auto) 37.8 [place] % (Auto) 7.8 Eos % (Auto) 9.8 Baso % (Auto) 0.7 Neut # (Auto) 5.29 Lymph # (Auto) 4.62 H [place] # (Auto) 0.95 H Eos # (Auto) 1.20 H Baso # (Auto) 0.08 Immature Gran # (Auto) 0.09 H Absolute Nucleated RBC 0.09 H Nucleated RBC % (auto) 0.7 Polychromasia 1+ Target Cells 3+ Sickle Cell Screen POSITIVE A Hemoglobin A Hemoglobin A2 Hemoglobin C Hemoglobin E Hemoglobin F () Hemoglobin S Variant Hemoglobin Hemoglobin Variant 2 Hgb ELP Interp Hemoglobinopathy Red Blood Count Hemoglobinopathy Hct Hemoglobinopathy Hgb Hemoglobinopathy MCV Hemoglobinopathy MCH Hemoglobinopathy RDW APTT 50.7 H* PTT Ratio 1.8 Procalcitonin Beta-2-GPI IgG Ab Beta-2-GPI IgA Ab Beta-2-GPI IgM Ab Phosphatidylserine IgG Phosphatidylserine IgA Phosphatidylserine IgM Anti-Phospholipid Intrp Anti-Cardiolipin IgG Ab Anti-Cardiolipin IgA Ab Anti-Cardiolipin IgM Ab 09/12/21 09/12/21 05:35 05:47 WBC RBC Hgb Hct MCV MCH MCHC RDW Std Deviation RDW Coeff of Eric Plt Count MPV Immature Gran % (Auto) Neut % (Auto) Lymph % (Auto) [place] % (Auto) Eos % (Auto) Baso % (Auto) Neut # (Auto) Lymph # (Auto) [place] # (Auto) Eos # (Auto) Baso # (Auto) Immature Gran # (Auto) Absolute Nucleated RBC Nucleated RBC % (auto) Polychromasia Target Cells Sickle Cell Screen Hemoglobin A Pending Hemoglobin A2 Pending Hemoglobin C Pending Hemoglobin E Pending Hemoglobin F () Pending Hemoglobin S Pending Variant Hemoglobin Pending Hemoglobin Variant 2 Pending Hgb ELP Interp Pending Hemoglobinopathy Red Blood Count Pending Hemoglobinopathy Hct Pending Hemoglobinopathy Hgb Pending Hemoglobinopathy MCV Pending Hemoglobinopathy MCH Pending Hemoglobinopathy RDW Pending APTT PTT Ratio Procalcitonin < 0.05 Beta-2-GPI IgG Ab Pending Beta-2-GPI IgA Ab Pending Beta-2-GPI IgM Ab Pending Phosphatidylserine IgG Pending Phosphatidylserine IgA Pending Phosphatidylserine IgM Pending Anti-Phospholipid Intrp Pending Anti-Cardiolipin IgG Ab Pending Anti-Cardiolipin IgA Ab Pending Anti-Cardiolipin IgM Ab Pending PG Care Time/CCT Total # of Minutes Spent Total Time Spent with Patient: Total time spent is greater than 50% in coordination of care (as documented) at patient's floor/unit and/or counseling patient: Coding Level of Care Code 41178 Subseq Hosp Care Lvl 3 Diagnoses Bilateral pulmonary embolism I26.99 Anemia D64.9 Thrombophilia D68.59 PTSD (post-traumatic stress disorder) F43.10 Schizoaffective disorder F25.9 Leucocytosis D72.829 Asplenia Q89.01
[2021-09-12] MEDS ORDERED: [UNRECOGNIZED DRUG - OTHER] IM ONE (18:00)
[2021-09-12] MEDS: traZODone HCL 100 MG TAB PO SCH (20:48)
[2021-09-12] MEDS: BENZTROPINE MESYLATE 1 MG TAB PO SCH (20:49)
[2021-09-13] MEDS: HEPARIN SODIUM/DEXTROSE 25,000 UNITS/500 ML BAG IV SCH (02:37)
[2021-09-13 06:49] LABS: Hematocrit (blood only) 24.5 % (34.1-44.9); Hemoglobin 8.6 g/dl (12.0-16.0); Mean Corpuscular Hemoglobin 25.5 pg (25.0-34.0); Mean Corpuscular Hgb Conc 35.1 g/dL (32.0-36.0); Mean Corpuscular Volume 72.7 fL (80.0-100.0); Mean Platelet Volume 8.8 fL (9.4-12.3); Nucleated RBC # (auto) 0.11 K/uL (0-0); Nucleated RBC % (auto) 0.8 %; Platelet Count 768 K/uL (130-400); RDW Coefficient of Variation 17.7 % (11.5-14.5); RDW Standard Deviation 46.4 fL (36.4-46.3); Red Blood Count 3.37 M/uL (3.93-5.22); White Blood Count 13.53 K/ul (4.8-10.8)
[2021-09-13 07:24] LABS: Basophils # (auto) 0.07 K/uL (0-0.2); Basophils % (auto) 0.5 %; Eosinophils # (auto) 1.12 K/uL (0-0.50); Eosinophils % (auto) 8.3 %; Immature Granulocytes # (auto) 0.09 K/uL (0.00-0.02); Immature Granulocytes % (auto) 0.7 %; Lymphocytes # (auto) 4.89 K/uL (1.2-3.4); Lymphocytes % (auto) 36.1 %; Macrocytosis Present; Monocytes # (auto) 1.05 K/uL (0.24-0.82); Monocytes % (auto) 7.8 %; Neutrophils # (auto) 6.31 K/uL (1.4-6.5); Neutrophils % (auto) 46.6 %; Poikilocytosis Present; Polychromasia 2+; Target Cells 2+
[2021-09-13 07:37] LABS: Partial Thromboplastin Ratio 2.1
[2021-09-13 07:41] LABS: Albumin Globulin Ratio 0.9 (0.9-2); Albumin Level 3.4 gm/dl (3.4-5.0); BUN Creatinine Ratio 5.8 (10-20); Bilirubin,Total 0.6 mg/dl (0.2-1.0); Calcium 8.7 mg/dl (8.5-10.1); Creatinine Clr Calc Pharmacy 88.5 ml/min; Est GFR (African American) 77.6 ml/min; Globulin 3.7 gm/dl (2.5-4.0); Magnesium 1.7 mg/dl (1.7-2.4); Partial Thromboplastin Time 57.2 Seconds (21.0-31.0); Phosphorus 3.9 mg/dl (2.5-4.9); Potassium 4.1 mmol/L (3.5-5.1); Total Protein 7.1 gm/dl (6.0-8.3)
[2021-09-13] MEDS: risperiDONE 3 MG TABLET PO SCH ×2 (08:19→20:57)
[2021-09-13] MEDS: CYANOCOBALAMIN (B-12) 500 MCG TABLET PO SCH (08:19)
[2021-09-13] MEDS: VENLAFAXINE HCL XR 75 MG CAPXR PO SCH ×2 (08:19→13:54)
[2021-09-13] MEDS: GABAPENTIN 300 MG CAP PO SCH ×3 (08:20→20:58)
[2021-09-13] MEDS: haloperidoL 5 MG TAB PO SCH (08:20)
[2021-09-13] MEDS: DOCUSATE SODIUM 100 MG CAP PO SCH ×2 (08:21→20:58)
[2021-09-13] MEDS: diphenhydrAMINE Capsule 25 MG CAP PO SCH ×2 (08:27→20:59)
[2021-09-13] MEDS: FOLIC ACID 1 MG TAB PO SCH ×2 (08:30→11:25)
[2021-09-13] MEDS: ACETAMINOPHEN 325 MG TAB PO PRN ×3 (08:33→23:39)
[2021-09-13] MEDS ORDERED: ENOXAPARIN 1 MG/KG SQ SCH (11:15)
[2021-09-13] MEDS: LIDOCAINE 5% 1 PATCH TD SCH (11:24)
--- NOTE | 2021-09-13 12:57 | Hospitalist Progress Note ---
Date of Service September 13, 2021 Assessment & Plan (1) Bilateral pulmonary embolism: Plan: - Reportedly past history in 2007 when she was on Coumadin (not confirmed) but a pparently did not tolerate same and later describes what appears to be Lovenox; - Given recurrence should be on lifelong anticoagulation; however, will need to consider antiphospholipid syndrome, if so, Coumadin would be the drug of choice - APL antibody studies sent but pending (is a send out) - Has no prescription drug coverage therefore DOACs not an option - Transitioned to Lovenox with Coumadin on 09/13, will need to remain in house until her INR is therapeutic as [facility] will not take her back while she is still requiring Lovenox (2) Anemia: Plan: - microcytic anemia-- appears picture of sickle cell; sickle screen positive and functional asplenia correlates - also vitamin B12 deficient and low serum folic acid levelsboth replaced - hemoglobinopathy studies pending - advise outpatient hematology follow-up (3) Thrombophilia: Plan: - Along with leukocytosis 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 (7) Asplenia: Plan: Functional asplenia; should get appropriate vaccinations PCV 20-not available; PCV 15 also not available; if PCV 13 or 15 then PPSV23 8 weeks later (none of the PCVs were available) Hib-given MenACWY 2 doses 8 weeks apart-not available Bexsero 2 doses 1 month apartnot available Not available vaccinesas outpatient Low threshold for antibiotics; however, based on procalcitonin and overall clinical picture, abx that were given upfront have been stopped Plan VTE Prophylaxis - Lovenox/Coumadin Follow up PT/INR in 48 hours (on 09/15) D/c back to [facility] when INR is therapeutic Plan d/w Dr. Rodriguez Admission and Anticipated Discharge Date Admission Date: September 11, 2021 Subjective Patient seen on rounds this morning. She is resting comfortably in bed, has some vague complaints of side pain and leg pain. No shortness of breath or chest pain. She remains on Heparin gtt for acute b/l PEs, second occurrence. Previously treated with Coumadin. She recently moved to the area, is not established with a pharmacy, has no prescription coverage with her insurance, therefore cannot afford DOACs. She was sent from [facility] and they are not permitted to take anyone back who is requiring Lovenox, per their hospital policy. Review of Systems Review of Systems: All systems reviewed and are unremarkable except as noted in HPI and below. Denies fever, chills, fatigue, headache, nasal congestion, sore throat, cough, chest pain, shortness of breath, palpitations, orthopnea, PND, abdominal pain, n/v/d, constipation, dysuria, hematuria, frequency, back pain, joint pain or swelling, easy bruising or bleeding, skin lesions or rashes. Physical Exam Physical Exam: GENERAL: 40 yo AAF Well-developed, well-nourished. NAD. LUNGS: Clear to auscultation bilaterally. No W/R/R. CARDIOVASCULAR: Regular rate and rhythm. ABDOMEN: Soft, non-tender and non-distended. BS normoactive x 4 quad. EXTREMITIES: No edema. Non-tender. Peripheral pulses +2/4. NEUROLOGIC: A&O x3. Nonfocal PSYCHIATRIC: Cooperative. Appropriate mood with flat affect SKIN: Warm, dry, intact. No rashes or lesions. Results & Data Results & Data ([facility]) Vital Signs (Past 12 Hours) Vital Signs Temp Pulse Pulse Resp BP Pulse Ox O2 Del Method 09/13/21 11:09 36.8 C 65 18 116/80 94 Room Air 09/13/21 07:41 63 09/13/21 07:34 36.8 C 65 18 111/70 95 Room Air 09/13/21 03:41 36.8 C 81 20 122/80 92 Room Air Laboratory Results 09/13/21 06:29 09/13/21 06:29 PG Care Time/CCT Total # of Minutes Spent Total Time Spent with Patient: Total time spent is greater than 50% in coordination of care (as documented) at patient's floor/unit and/or counseling patient: Coding Level of Care Code 46084 Subseq Hosp Care Lvl 2 Diagnoses Bilateral pulmonary embolism I26.99 Anemia D64.9 Thrombophilia D68.59 PTSD (post-traumatic stress disorder) F43.10 Schizoaffective disorder F25.9 Leucocytosis D72.829 Asplenia Q89.01
[2021-09-13] MEDS: ENOXAPARIN 100 MG/1ML SYR SQ SCH ×2 (13:55→23:34)
[2021-09-13] MEDS ORDERED: WARFARIN SOD 5 MG TAB PO SCH (16:00)
[2021-09-13] MEDS: traZODone HCL 100 MG TAB PO SCH (20:56)
[2021-09-13] MEDS: BENZTROPINE MESYLATE 1 MG TAB PO SCH (20:58)
[2021-09-14 07:56] LABS: Hematocrit (blood only) 23.7 % (34.1-44.9); Hemoglobin 8.6 g/dl (12.0-16.0); Mean Corpuscular Hemoglobin 25.9 pg (25.0-34.0); Mean Corpuscular Hgb Conc 36.3 g/dL (32.0-36.0); Mean Corpuscular Volume 71.4 fL (80.0-100.0); Mean Platelet Volume 8.7 fL (9.4-12.3); Nucleated RBC # (auto) 0.11 K/uL (0-0); Nucleated RBC % (auto) 0.9 %; Platelet Count 766 K/uL (130-400); RDW Coefficient of Variation 17.8 % (11.5-14.5); RDW Standard Deviation 45.5 fL (36.4-46.3); Red Blood Count 3.32 M/uL (3.93-5.22); White Blood Count 12.79 K/ul (4.8-10.8)
[2021-09-14 08:25] LABS: Partial Thromboplastin Ratio 1.2; Partial Thromboplastin Time 32.9 Seconds (21.0-31.0)
[2021-09-14 08:30] LABS: Basophils # (auto) 0.06 K/uL (0-0.2); Basophils % (auto) 0.5 %; Eosinophils # (auto) 0.97 K/uL (0-0.50); Eosinophils % (auto) 7.6 %; Immature Granulocytes # (auto) 0.07 K/uL (0.00-0.02); Immature Granulocytes % (auto) 0.5 %; Lymphocytes # (auto) 4.05 K/uL (1.2-3.4); Lymphocytes % (auto) 31.7 %; Monocytes % (auto) 7.8 %; Neutrophils # (auto) 6.64 K/uL (1.4-6.5); Neutrophils % (auto) 51.9 %; Polychromasia 2+; Target Cells 3+
[2021-09-14] MEDS: CYANOCOBALAMIN (B-12) 500 MCG TABLET PO SCH (08:32)
[2021-09-14] MEDS: diphenhydrAMINE Capsule 25 MG CAP PO SCH (08:32)
[2021-09-14] MEDS: DOCUSATE SODIUM 100 MG CAP PO SCH (08:32)
[2021-09-14] MEDS: haloperidoL 5 MG TAB PO SCH (08:32)
[2021-09-14] MEDS: GABAPENTIN 300 MG CAP PO SCH ×2 (08:32→13:59)
[2021-09-14] MEDS: FOLIC ACID 1 MG TAB PO SCH (08:33)
[2021-09-14] MEDS: VENLAFAXINE HCL XR 75 MG CAPXR PO SCH ×2 (08:33→12:01)
[2021-09-14] MEDS: LIDOCAINE 5% 1 PATCH TD SCH (08:34)
[2021-09-14] MEDS: risperiDONE 3 MG TABLET PO SCH (08:35)
[2021-09-14] MEDS: ACETAMINOPHEN 325 MG TAB PO PRN ×2 (08:40→18:59)
[2021-09-14] MEDS: ENOXAPARIN 100 MG/1ML SYR SQ SCH (12:00)
--- NOTE | 2021-09-14 14:44 | Discharge Summary ---
Date of Service September 14, 2021 Admission HPI Per Admitting Provider Billie Mast is a 40 year old female who presents from the [facility] due to chest discomfort, shortness of breath, tachycardia and hypoxia. She reports her symptoms have been ongoing for two weeks starting with left sided chest pain but now on both sides. Worse on inspiration. Associated shortness of breath. Urine has also been smelling and is darker but she also reports not drinking well - she was recently treated for a UTI with nitrofurantoin at the [facility]. She also now reports left leg pain for the last 2 days. Recent CXR yesterday was concerning for some consolidation and she was started on Levquin today. However given persistent worsening symptoms she was sent ot the ER for further evaluation. In the ER CT chest angiogram was concerning for bilateral pulmonary emboli therefore she was referred to medicine for admission and ongoing management of this. She is unsure about her medical history but thinks she may have had a blood clot sometime in 2007 for which she was treated with a blood thinner. When mentioning sickle cell disease/trait she thinks she has this although again is unsure. Principal Diagnosis Acute bilateral pulmonary emboli Discharge Exam GENERAL: 40 yo AAF Well-developed, well-nourished. NAD. LUNGS: Clear to auscultation bilaterally. No W/R/R. CARDIOVASCULAR: Regular rate and rhythm. ABDOMEN: Soft, non-tender and non-distended. BS normoactive x 4 quad. EXTREMITIES: No edema. Non-tender. Peripheral pulses +2/4. NEUROLOGIC: A&O x3. Nonfocal PSYCHIATRIC: Cooperative. Appropriate mood with flat affect SKIN: Warm, dry, intact. No rashes or lesions. Discharge Data Allergies Allergy/AdvReac Type Severity Reaction Status Date / Time shellfish derived Allergy Unknown Verified 09/10/21 20:56 lactose AdvReac intolerance Verified 09/10/21 20:56 Consultations 09/10/21 17:43 ED Decision to Admit Stat 09/10/21 22:11 Consult Behavioral Health Liaison Routine Ordered Studies Chest X-Ray 09/10/21 13:08 XR chest 1V portable CLINICAL HISTORY: SOB TECHNIQUE: Single frontal radiograph of the chest was obtained. Comparison: None available at the time of this dictation. FINDINGS: No lines and tubes are seen. The cardiomediastinal silhouette is normal. The lungs are clear. Small bilateral pleural effusions are seen. IMPRESSION: Small bilateral pleural effusions. ACT 112: Negative or not required by law. Electronically signed by: Bebeto Reed M.D. 09/10/2021 3:54 PM Chest CTA 09/10/21 16:11 CT ANGIOGRAM OF THE CHEST CLINICAL HISTORY: Dyspnea. Bilateral flank pain. COMPARISON STUDY: Chest x-ray dated 09/10/2021. TECHNIQUE: Following the IV administration of 120 cc of Optiray 320, CT angiogram of the chest was performed from the upper abdomen to the thoracic inlet utilizing the pulmonary embolus protocol. Images are reviewed in the axial, sagittal, and coronal planes. 3-D MIPS images are created and assessed. IV contrast was administered without complication. A dose lowering technique was utilized adhering to the principles of ALARA. CT DOSE: 359.98 mGy.cm FINDINGS: Thyroid: Imaged portions of the thyroid gland are normal in size and attenuation. Thoracic aorta: The thoracic aorta is normal in caliber and demonstrates standard 3-vessel arch anatomy. No dissection is seen. Pulmonary vasculature: The pulmonary trunk is normal in caliber. There are segmental and subsegmental pulmonary emboli within a branch of the right upper lobe pulmonary artery. This is best seen on axial image #187. Segmental and subsegmental left upper lobe pulmonary emboli are seen on image #153. The central pulmonary vessels are clear. Evaluation of the lower lobe vessels is significantly degraded by motion artifact. Heart: The heart is top normal in size and without pericardial effusion. Lungs and pleural spaces: There are small pleural effusions with dense bibasilar consolidation. The upper lobe lung parenchyma is clear. The trachea and central airways are patent. A 3 mm low suspicion pleural-based nodule is seen in the right middle lobe along the minor fissure on image #134. Mediastinum: There is a mildly enlarged prevascular node which measures up to 10 mm in short axis. Grazyna: There are mildly enlarged hilar nodes which measure up to 10 mm short axis. Axillae: There is no axillary lymphadenopathy. Upper abdomen: The spleen is diminutive. Partially visualized upper abdominal viscera is otherwise within normal limits. Skeletal structures: No lytic or blastic bony lesions are seen. IMPRESSION: 1. Segmental and subsegmental pulmonary emboli are seen within the upper lobe pulmonary arteries bilaterally. 2. Small pleural effusions with dependent consolidation. This likely represents atelectasis. Correlate clinically for evidence of a superimposed infectious/inflammatory pneumonitis. 3. Atrophic spleen. 4. Mildly enlarged mediastinal and hilar nodes are likely reactive. 5. Additional findings as above. ACT 112: Negative or not required by law. Electronically signed by: Jai Wills M.D. 09/10/2021 4:55 PM Venous Doppler Study 09/10/21 16:25 US venous doppler LE LT CLINICAL HISTORY: calf pain TECHNIQUE: Left lower extremity real-time compression venous ultrasound with Color Doppler imaging. Utilizing real-time ultrasonic imaging multiple real time high-resolution ultrasonic images with compression and noncompression maneuvers of the deep venous system in addition to color doppler imaging were performed from the common femoral vein through the proximal calf veins. COMPARISON: None available at the time of this dictation. FINDINGS: Currently there is normal compressibility of the deep venous system from the common femoral vein through the proximal calf veins. No superficial venous thrombosis is identified. Impression: No evidence of deep venous thrombus. ACT 112: Negative or not required by law. Electronically signed by: Bebeto Reed M.D. 09/10/2021 5:50 PM Hospital Course (1) Bilateral pulmonary embolism: - Reportedly past history in 2007 when she was on Coumadin (not confirmed) but apparently did not tolerate same and later describes what appears to be Lovenox; - Given recurrence should be on lifelong anticoagulation; however, will need to consider antiphospholipid syndrome, if so, Coumadin would be the drug of choice - APL antibody studies sent but pending (is a send out) - Case management determined pt has a secondary insurance, [employer], they will cover the cost of a DOAC - Pt will be switched to Eliquis 10mg BID x 7 days and then 5mg BID thereafter - If the APL antibody comes back positive, will need to switch her to Coumadin and bridged with Lovenox - This may require a return to the hospital as the [facility] will not give Lovenox per hospital policy (2) Anemia: - microcytic anemia-- appears picture of sickle cell; 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 on Eliquis. Case management as well as myself have been in contact with the [facility] regarding this patient's plan. They will provide transport back the facililty at 1900. Case has been d/w Dr. Rodriguez who has also seen this patient and is in agreement with the aforementioned. Total Time Total Time Spent Total Time Spent (In Minutes): >30 minutes Discharge Plan Discharge Items Patient Disposition: Transfer Behavioral Health Fac Reason For Visit: BILATERAL PULMONARY EMBOLI Discharge Diagnosis: blood clots in lungs Activity: Resume your previous activity Non-emergency contact: Primary Care Provider and Psychiatrist Call non-emergency contact if: you have any medication questions and your symptoms worsen Follow-up/Referrals: PCP,NO [Primary Care Provider] - Diet: Regular Addtl Attending Provider Instructions: You were hospitalized due to blood clots in your lungs. Now due to the fact that this is the second time you have had blood clots, you will need to remain on blood thinners indefinitely. Blood work has been ordered to determine if you have an underlying clotting disorder. This blood work is a send out and will take time to come back. For now, you will be started on a medication called Eliquis which is a newer blood thinner that does NOT require your blood to be routinely tested to check levels. You will be started on Eliquis 10mg which you will take once in the morn ing and once in the evening. You will continue this dose for 7 days. After that, you will reduce the dose to 5mg, and continue taking it once in the morning and once at night. You are due to start your Eliquis 10mg this evening (09/14/21) at 9pm. If your blood work comes back that you have a condition called "Antiphospholipid antibody syndrome" then you will need to have your blood thinner switched from Eliquis to Coumadin. However, this cannot be determined until the results of your blood work have returned and are reviewed. Please note that because you will be on blood thinners, you will have a higher risk of bleeding in event of major injury. For minor cuts you may notice that you bleed more than you did before starting blood thinners. If this occurs, just hold pressure. If you cannot get bleeding to stop, seek care promptly. It is recommended that you follow up with a healthcare provider following your discharge in 5-7 days. You should establish care with a primary care provider and continue following up with them every 6 to 12 months. It is also recommended that you follow up with a welder setter electron beam machine who specializes in low blood counts. 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 If you have questions following your discharge, you may call the nonemergency number listed on your discharge paperwork. Pending Studies at Discharge: Yes Studies:: Antiphospholipid antibody Stand-Alone Forms: [facility] Medications and DC Order Prescriptions: New Eliquis 5 mg (74 tabs) tablets,dose pack 5 mg PO Q12H Qty: 74 0RF Rx Instructions: 10mg BID x 7 days, then 5mg BID thereafter Continued albuterol sulfate 2.5 mg /3 mL (0.083 %) Solution For Nebulization 2.5 mg INHALATION Q4H Rx Instructions: Stop 09/12/21 benztropine 1 mg Tablet 1 mg PO HS Rx Instructions: stop 10/08/21 venlafaxine [Effexor XR] 75 mg Capsule,Extended Release 24hr 75 mg PO BID Rx Instructions: stop 09/25/21 haloperidol 5 mg Tablet 5 mg PO QAM Rx Instructions: stop 10/06/21 lidocaine [Salonpas (lidocaine)] 4 % Adhesive Patch,Medicated 3 patch TOPICAL PC MDD remove @ 2358 PRN (Reason: Pain) Rx Instructions: stop 09/10/21 , 2358 risperidone 3 mg Tablet 3 mg PO BID Rx Instructions: stop 10/08/21 trazodone 100 mg Tablet 200 mg PO HS Rx Instructions: end 09/25/21 diphenhydramine HCl [Benadryl] 25 mg Capsule 25 mg PO BID Rx Instructions: stop 09/29/21 gabapentin 300 mg Capsule 300 mg PO TID Rx Instructions: stop 10/05/21 ibuprofen 600 mg Tablet 600 mg PO TID PRN (Reason: Pain) albuterol sulfate 90 mcg/actuation Hfa Aerosol Inhaler 2 inh INHALATION Q6 PRN (Reason: asthma) loratadine [Claritin] 10 mg Tablet 10 mg PO DAILY PRN (Reason: allergies) Discontinued levofloxacin [Levaquin] 250 mg Tablet 750 mg PO DAILY Rx Instructions: stop 09/14/21 nitrofurantoin macrocrystal 100 mg Capsule 100 mg PO BID Rx Instructions: stop 09/10/21 @ 0859 Discharge Orders: Discharge Order (Routine); Ordered 09/14/21 Ordered By: Lakeshia Fontaine Admission Data Admit Date/Time: 09/11/21 15:57 Attending Provider: Michael Rodriguez Admit Provider: Syed Bell Primary Care Provider: PCP,NO Other Providers: Syed Bell Other Interventions: Discharge Summary Assessment (RN) Last Done: 09/14/21 14:49 Supervising Physician Co-Signing Physician Notes Patient seen and examined, chart reviewed, case discussed with Patricia Fontaine PA-C and I agree with the assessment and plan as above except as otherwise noted. Patient is 38-year-old female who presented with chest discomfort, shortness of breath, tachycardia, and hypoxia for 2 weeks. Was found to have bilateral pulmonary emboli. Antiphospholipid studies are pending, will need follow-up at transitional care appointment. Patient was discharged on DOAC, however if APL comes back positive will need to switch to Lovenox and bridged with Coumadin. Patient clinically improving and stable at time of discharge. At bedside visit prior to discharge breathing is unlabored, in no pain, lungs are clear, and heart rate is regular with no murmurs on auscultation. Agree with management above, okay for discharge Coding Level of Care Code D/C DAY MANAGEMENT >30 MINS Diagnoses Bilateral pulmonary embolism I26.99 Anemia D64.9 Thrombophilia D68.59 PTSD (post-traumatic stress disorder) F43.10 Schizoaffective disorder F25.9 Leucocytosis D72.829 Asplenia Q89.01
== END 2021-09-14 19:15 | DRG 176 ==
LOC: 2N 12:53 → ED 12:53 → SUATTDRO 17:39 → 2N 21:00 → SUATTDRO 09-11 15:57